=== PATIENT | female | born 1950 | race Caucasian/White ===

== ENCOUNTER 2017-02-16 08:45 | Day surgery (SDC) | payer MEDICARE, OTHER ==
[~2017-02-16 08:45] MED LIST: Cefuroxime 10 MG/ML SYRINGE EYELF SCH; Lidocaine 1% PF 2 ML SDV INJECT SCH; Pilocarpine 4% Ophth Soln 15 ML Bot EYELF SCH
[2017-02-16] MEDS: Polymyxin B/Trimethoprim 10 ML Bottle EYELF SCH ×3 (09:42→11:27)
[2017-02-16] MEDS: Brimonidine 0.2% Ophth Soln 5 ML Bottle EYELF SCH ×3 (09:48→11:27)
[2017-02-16] MEDS: Phenylephrine 2.5% Ophth Soln 2 ML Bot EYELF SCH ×5 (09:54→11:11)
--- NOTE | 2017-02-16 09:56 | PCM.PREANE ---
Preanesthetic Assessment - Anesthesia/Transfusion/Family Hx Anesthesia History: Prior Anesthesia Reaction (nausea) Family History of Anesthesia Reaction: No Transfusion History: No Prior Transfusion(s) - Review of Systems General: No Symptoms Pulmonary: Cough Cardiovascular: No Symptoms Gastrointestinal: No Symptoms Neurological: No Symptoms Other: Reports: Thyroid Problems (hypo) - Physical Assessment NPO Status Date: 02/15/17 NPO Status Time: 00:00 Pulse: 64 O2 Sat by Pulse Oximetry: 99 Respiratory Rate: 16 Blood Pressure: 137/66 Temperature: 36.2 C Height: 1.63 m ASA Class: 3 Mental Status: Alert & Oriented x3 Airway Class: Mallampati = 2 Dentition: Reports: Normal Dentition Thyro-Mental Finger Breadths: 2 Mouth Opening Finger Breadths: 2 ROM/Head Extension: Limited/Partial Lungs: Clear to Auscultation, Normal Respiratory Effort Cardiovascular: Regular Rate, Regular Rhythm - Allergies Allergies/Adverse Reactions: Allergies Allergy/AdvReac Type Severity Reaction Status Date / Time DAR Inhibitors Allergy Headache Verified 02/15/17 14:31 rosuvastatin [From Crestor] Allergy Cannot Verified 02/15/17 14:31 Remember - Anesthesia Plan Pre-Op Medication Ordered: Beta Aaliyah Beta Aaliyah: Atenolol - Acknowledgements Anesthesia Type Planned: MAC Pt an Appropriate Candidate for the Planned Anesthesia: Yes Alternatives and Risks of Anesthesia Discussed w Pt/Guardian: Yes Pt/Guardian Understands and Agrees with Anesthesia Plan: Yes PreAnesthesia Questionnaire - HOME MEDS Home Medications: Home Meds [place]/Cell/Lipas/Malt/Prt/Lac/in [Digestive Enzymes Capsule] 220 mg PO DAILY 02/15 [History] Aspirin 325 mg PO DAILY 02/15/17 [History] Atenolol [Tenormin] 25 mg PO DAILY 02/15/17 [History] Calcium Carbonate [Calcium] 500 mg PO BID 02/15/17 [History] Carboxymethylcellulose Sodium [Refresh Tears] 1 drop EYEBOTH ASDIRECTED PRN [History] Cyclobenzaprine [Flexeril] 10 mg PO TID 02/15/17 [History] Fish Oil/[place]ollhouse-3 Fatty Acids [Fish Oil 1,000 MG] 1 gm PO DAILY 02/15/17 [History ] Levothyroxine Sodium [Synthroid] 100 mcg PO DAILY 02/15/17 [History] Magnesium 30 mg PO DAILY 02/15/17 [History] Multivitamin [Daily Luis] 1 tab PO DAILY 02/15/17 [History] Niacin 500 mg PO DAILY 02/15/17 [History] Nortriptyline HCl 75 mg PO DAILY 02/15/17 [History] SUMAtriptan [Imitrex] 50 mg PO ASDIRECTED PRN 02/15/17 [History] atorvaSTATin [Lipitor] 20 mg PO DAILY 02/15/17 [History] - CURRENT (IN HOUSE) MEDS Current Meds: Current Medications Brimonidine Tartrate (Alphagan 0.2% Ophth Soln) 0 ml EYELF ASDIRECTED COSTA Stop: 02/16/17 18:00 Last Admin: 02/16/17 09:48 Dose: 1 drop Cefuroxime Sodium (Zinacef) 0 mg EYELF ASDIRECTED COSTA Stop: 02/16/17 18:00 Lidocaine HCl (Xylocaine-Mpf 1%) 10 ml INJECT ASDIRECTED COSTA Stop: 02/16/17 18:00 Phenylephrine HCl (Andres-Synephrine 2.5% Ophth Soln) 0 ml EYELF ASDIRECTED COSTA Stop: 02/16/17 18:00 Pilocarpine HCl (Pilocar 4% Ophth Soln) 0 ml EYELF ASDIRECTED COSTA Stop: 02/16/17 18:00 Polymyxin/Trimethoprim Sulfate (Polytrim Ophth Soln) 0 ml EYELF ASDIRECTED COSTA Stop: 02/16/17 18:00 Last Admin: 02/16/17 09:42 Dose: 1 drop Tetracaine HCl (Tetracaine 0.5% Steri-Unit Liset) 0 ml EYELF ASDIRECTED COSTA Stop: 02/16/17 18:00 Tropicamide (Mydriacyl 1% Ophth Soln) 0 ml EYELF ASDIRECTED COSTA Stop: 02/16/17 18:00
[2017-02-16] MEDS: Tetracaine HCl/PF 0.5% 4 ML Bottle EYELF SCH ×2 (11:00→11:20)
--- NOTE | 2017-02-16 11:29 | PCM48HPAN ---
Post Anesthesia Note - EVALUATION WITHIN 48HRS OF ANESTHETIC Vital Signs in Normal Range: Yes Patient Participated in Evaluation: Yes Respiratory Function Stable: Yes Airway Patent: Yes Cardiovascular Function Stable: Yes Hydration Status Stable: Yes Pain Control Satisfactory: Yes Nausea and Vomiting Control Satisfactory: Yes Mental Status Recovered: Yes
[2017-02-16 11:39] VITALS: BP 147/77
== END 2017-02-16 11:36 | disposition home or self-care (01) ==
LOC: JD.SDS 08:45
PROVIDERS: ATTEND Ophthalmology
PROC: 08RK3JZ Replacement of Left Lens with Synthetic Substitute, Percutaneous Approach (ICD-10-PCS; principal; 2017-02-16)
DX: H25.813 Combined forms of age-related cataract, bilateral (principal); H02.412 Mechanical ptosis of left eyelid; H35.373 Puckering of macula, bilateral; H16.103 Unspecified superficial keratitis, bilateral; H16.223 Keratoconjunctivitis sicca, not specified as Sjogren's, bilateral; E78.00 Pure hypercholesterolemia, unspecified; E07.9 Disorder of thyroid, unspecified; I10 Essential (primary) hypertension; Z79.82 Long term (current) use of aspirin; Z79.899 Other long term (current) drug therapy; Z98.890 Other specified postprocedural states; Z83.3 Family history of diabetes mellitus
CPT/HCPCS: 66984; A9270; C1780; J0697

== ENCOUNTER 2021-11-23 11:42 | Emergency (ER) | payer MEDICARE, OTHER ==
[2021-11-23] MEDS ORDERED: Aspirin 325 MG Tab.EC PO ONE (12:36)
[2021-11-23] MEDS ORDERED: Sodium Chloride 0.9% 10 ML Syringe FLUSH PRN (12:49)
[2021-11-23] MEDS ORDERED: Iopamidol 755 Mg/ML 100 ML Bottle IVPUSH ONE (12:49)
[2021-11-23] MEDS ORDERED: Sodium Chloride 0.9% 100 ML IV SCH (13:00)
[2021-11-23 13:09] LABS: ESTIMATED GFR 59 mL/min (>60)
[2021-11-23 13:47] VITALS: BP 130/59; PULSE 72
[2021-11-23] MEDS ORDERED: Clopidogrel 75 MG Tab PO ONE (14:37)
== END 2021-11-23 14:50 | disposition home or self-care (01) ==
LOC: JD.ED 11:42
DX: G45.9 Transient cerebral ischemic attack, unspecified (principal); Z88.8 Allergy status to other drugs, medicaments and biological substances
CPT/HCPCS: 36415; 70450; 70496; 70498; 80053; 84484; 85025; 85610; 85730; 93005; 96360; 99285; A9270; J3490; Q9967; 93010; 99283